=== PATIENT | male | born 1980 | race Two or more races ===

== ENCOUNTER 2019-04-08 12:21 | Inpatient (IN) | payer OTHER ==
[~2019-04-08] VITALS: Ht 154.9 cm; Wt 52.2 kg
[2019-04-08 12:25] VITALS: Ht 154.9 cm; Wt 52.2 kg
--- NOTE | 2019-04-08 12:25 | NUR ---
PT BIBA FOR PALPITATIONS AND HR OF 160, PER REPORT PT HAS HAD APPROX 3 EPISODES OF DIARRHEA IN THE PAST 24 HRS WHILE AT [facility], PT WAS GIVEN 6MG OF IVP ADENOSINE, HR DECREASED TO 47 AND THEN RETURNED TO 157 HR, PT REPORTED TO MEDICS THAT MEDICATION MADE HIM FEEL ILL AND PT REFUSED MORE ADENOSINE. MEDICS ALSO REPORT ATTEMPTING TO VAGAL PT X3 WITH NO SUCCESS. PT REPORTS DRINKING "A LOT OF COKE, JUICE, COFFEE AND LOTS OF SUGAR". PT PLACED ON FULL CM. PT'S ONLY COMPLAINTS AT THIS TIME IS PALPITATIONS. DR RODRIGUEZ COMPLETED MSE.
[2019-04-08 12:56] LABS: RED CELL DISTRIBUTION WIDTH 14.3 % (11.5-14.5)
[2019-04-08 13:17] LABS: PLATELET COUNT 439 x10^3mcL (130-400)
[2019-04-08 13:19] LABS: CALCIUM 9.2 mg/dL (8.5-10.1); CARBON DIOXIDE 24.2 mmol/L (21-32); CHLORIDE SERUM 100 mmol/L (98-107); CREATININE SERUM 1.2 mg/dL (0.7-1.3); GFR1 > 60 mL/min; GLUCOSE SERUM 152 mg/dL (74-106); POTASSIUM SERUM 3.9 mmol/L (3.5-5.1); SODIUM SERUM 138 mmol/L (136-145)
[2019-04-08 13:25] LABS: ALBUMIN 3.8 g/dL (3.4-5.0); ALKALINE PHOSPHATASE 87 U/L (46-116); ALT/SGPT 38 U/L (16-63); AST/SGOT 34 U/L (15-37); BILIRUBIN TOTAL 0.3 mg/dL (0.20-1.00); MAGNESIUM 1.7 mg/dL (1.8-2.4)
[2019-04-08 13:31] LABS: TOTAL PROTEIN, SERUM 8.5 g/dL (6.4-8.2)
[2019-04-08 13:33] LABS: T3 TOTAL 0.92 ng/mL
[2019-04-08 13:34] LABS: BAND NEUTROPHIL 0 % (0-10); BASOPHIL 0 % (0-2); MONOCYTE 4 % (0-7); SEGMENTED NEUTROPHILS 89 % (37-75)
[2019-04-08 13:35] LABS: FREE T4 0.78 ng/dL (0.76-1.46); PLATELET MORPHOLOGY PLATELETS INCREASED; rbc morphology (normal/abnorm) ABNORMAL (NORMAL)
[2019-04-08 13:36] LABS: FREE THYROXINE INDEX 1.4 ug/dL (1.4-4.5); T4(THYROXINE) 3.8 ug/dL (4.7-13.3)
[2019-04-08 14:25] LABS: AMPHETAMINE QUAL UR POSITIVE (See below)
--- NOTE | 2019-04-08 14:42 | NUR ---
PT'S BROTHER AT BEDSIDE, LEFT PERSONAL CELL,
[2019-04-08] MEDS ORDERED: SEROQUEL400 M1 PO (15:18)
[2019-04-08] MEDS ORDERED: PAXIL10 MG PO (15:18)
[2019-04-08] MEDS ORDERED: CELEXA10 MG (15:18)
[2019-04-08] MEDS ORDERED: RISPERDAL1 M1 PO (15:20)
--- NOTE | 2019-04-08 15:39 | NUR ---
REPORT GIVEN TO LONNY GONZALEZ TO ASSUME CARE OF PT.
[2019-04-08 16:11] VITALS: BP 144/110
--- NOTE | 2019-04-08 16:12 | NUR ---
ASSUMED CARE OF PATIENT.
--- NOTE | 2019-04-08 16:35 | NUR ---
PATIENT ALERT AND ORIENTED X2 TO NAME AND YEAR. 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 PRESENTS WITH FLAT AFFECT. STARTED ON NS 75ML/HR.
--- NOTE | 2019-04-08 16:36 | NUR ---
RECEIVED PT FROM ER. PT ADMIT FOR PALPITATION AND METH ABUSE, PT IS A/O X1, VERY CONFUSED. AND DELUSION PT STATE HE IS NOT FROM THIS PLANET, AWAKE FROM , BUT DENY ANY SUICIDAL IDEA AT THIS MOMENT, DENY HEARING ANY VOICE. OR ANY VISUAL HALLUSINATION. FOLLOW COMMAND AND ANSWER MOST QUESTIONS. LUNG SOUND CLEAR BILATERAL, NO COUGH, NO SOB, PT IS ON TELE 8, SVT, HR 150 ABOVE, BUT DENY ANY CHEST PAIN OR PALPITATION AT THIS MOMENT, BOWEL SOUND PRESENT ALL 4 QUADRANTS, NO DISTENTION, NO TENDER. PEDAL PULSE PRESENT BOTH FEET, NO EDEMA, IV AT LEFT AC, NO LEAKING, NO INFILTRATION. ALL ADLS ASSIST, ALL NEED MET, CALL LIGHT IN REACH, WILL CONTINUE TO MONITOR.
--- NOTE | 2019-04-08 17:31 | NUR ---
URINE SAMPLE COLLECTED AND SENT TO LAB
--- NOTE | 2019-04-08 17:32 | NUR ---
[facility]. PATIENT REMAINS ASYMPTOMATIC WITH CONFUSED BEHAVIOR.
[2019-04-08 17:56] LABS: UA SPECIFIC GRAVITY 1.015 (1.005-1.035); microscopic required? YES; urine erythrocyte 2+ (NEGATIVE)
--- NOTE | 2019-04-08 18:46 | NUR ---
REPORTED TO TICKET SORTER DREW OF URINALYSIS RESULTS. TELEPHONE ORDERS TO INITIATE IV ZOSYN 2.25MG Q8H. PATIENT SEEN RESTING IN BED TALKING ON THE PHONE. NO COMPLAINTS OF PAIN OR DISCOMFORT. WILL ENDORSE CARE TO ONCOMING RN.
--- NOTE | 2019-04-08 19:30 | NUR ---
PT IN BED AWAKE ORIENTED TALKING TO SOMEBODY IN THE PHONE NO DELUSIONAL THINKING, ANSWERS QUESTION APPROPRIATELY, DENIES PAIN NO DISTRESS, ST IN THE MONITOR HR >140'S NO CP OR PRESSURE, IVF NS INFUSING @ 75CC/HR IV ACCESS @ LAC PATENT NON INFIL, PT AMBULATING TO THE BATHROOM, SHIFT ASSESSMENT DONE, CALL LIGHT AT REACH CONT TO MONITOR.
--- NOTE | 2019-04-08 20:04 | NUR ---
AWAKE ORIENTED, VERBAL SLOW GARBLED SPEECH COMPREHENSIVE, LABORED BREATHING ON EXERTION NO DISTRESS ON 02 @ 2L/MIN NC, AUDIBLE EXPIRATORY WHEEZES, NO COUGHING, SATURATING 94%, RT PROT FOR TX, GEN WEAKNESS, NEEDS ASSIST FOR BED MOBILITY, LT SIDE LIMITED, IV ACCESS RFA PATENT NON INFIL, DENIES PAIN SHIFT ASSESSMENT DONE, ATTENDED NEEDS, SON AT BEDSIDE FOR VISIT CONT TO MONITOR.
--- NOTE | 2019-04-08 20:53 | NUR ---
RECEIVED A CALL PT NOT ON TELE, CHECKED PT NOT IN THE BED WHEN I LOOK INSIDE THE ROOM PT WAS HIDING BEHIND THE CURTAIN, CALLED SOMEBODY FOR HELP, THE PT CAME OUT FROM THE CURTAIN AND PICKED UP HIS BAG OF BELONGINGS WANT TO GO OUT ON PASS, STATED "I DON'T WANT TO STAY HERE" PT BIT THE IV TUBINGS AND REMOVED THE LINE, ALSO CUT OFF THE PHONE WIRE, HE TOOK THE TELE MONITOR AND PUT IT ON HIS POCKET, PT CONTINUE TO WALKED OUT, ANOTHER STAFF FOLLOWED HIM, DR MOODY MADE AWARE AND TRIED TO TALK TO THE PT BUT PT CONTINUE TO WALK TOWARDS THE ELEVATOR, ABLE TO GET TELE MONITOR FROM HIS POCKET AND REMOVED THE NAME BAND, PT STATED "I WILL GO TO A BETTER HOSPITAL IN [place]" PT THEN TOOK THE ELEVATOR DOWN, BROTHER ENZO STRONGIL INFORMED BY THE CN BY PHONE THAT THE PT LEFT THE HOSPITAL AMA.
== END 2019-04-08 20:52 | disposition left against medical advice (07) | DRG 871 ==
LOC: ED 12:21 → DU 15:01
PROVIDERS: Emergency Medicine; ADMIT Internal Medicine
DX: A41.9 Sepsis, unspecified organism (principal); N17.0 Acute kidney failure with tubular necrosis; N39.0 Urinary tract infection, site not specified; R80.9 Proteinuria, unspecified; R00.0 Tachycardia, unspecified; E83.42 Hypomagnesemia; F15.10 Other stimulant abuse, uncomplicated; F20.9 Schizophrenia, unspecified; F32.9 Major depressive disorder, single episode, unspecified
CPT/HCPCS: 84439; J2060; J2543; J3475; J7030

== ENCOUNTER 2019-04-30 11:52 | Inpatient (IN) | payer OTHER ==
[~2019-04-30] VITALS: Ht 154.9 cm; Wt 51.0 kg
[~2019-04-30 11:52] MED LIST: CELEXA10 MG; PAXIL10 MG PO; RISPERDAL1 M1 PO; SEROQUEL400 M1 PO
--- NOTE | 2019-04-30 12:06 | NUR ---
BROUGHT IN BY [facility], PT PICKED UP BY AMBULANCE @ [facility]. PT NOT ON 5149, GOES TO [facility] FOR DAY PROGRAM RE: PSYCH PROBLEM, HX DEPRESSION AND SCHIZOPHRENIA. PT TRANSFERRED TO [facility] FOR EVAL RE HBP, BP RESIDENTIAL LIFE DIRECTOR 162/117 PER REPORT. PT DENIES HEADACHE, RINGING @ EARS, DENIES N/V. 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 AWAITING FOR MSE.
--- NOTE | 2019-04-30 12:38 | NUR ---
STEPMOTHER AT BEDSIDE. PT TALKATIVE, SKIN MOIST, PALE, NO SIGNS OF RESP DISTRESS, EKG IN PROGRESS. URINAL AT BEDSIDE, AWARE NEED URINE SAMPLE.
[2019-04-30 12:52] LABS: CALCIUM 9.1 mg/dL (8.5-10.1); CARBON DIOXIDE 27.9 mmol/L (21-32); CHLORIDE SERUM 99 mmol/L (98-107); CREATININE SERUM 1.1 mg/dL (0.7-1.3); GFR1 > 60 mL/min; GLUCOSE SERUM 126 mg/dL (74-106); POTASSIUM SERUM 3.4 mmol/L (3.5-5.1); SODIUM SERUM 138 mmol/L (136-145)
[2019-04-30 12:57] LABS: BASOPHIL % 0.3 % (0-2); RED CELL DISTRIBUTION WIDTH 13.8 % (11.5-14.5)
[2019-04-30 12:58] LABS: PLATELET COUNT 419 x10^3mcL (130-400)
[2019-04-30 13:03] LABS: ALBUMIN 3.7 g/dL (3.4-5.0); ALKALINE PHOSPHATASE 82 U/L (46-116); ALT/SGPT 154 U/L (16-63); AST/SGOT 73 U/L (15-37); BILIRUBIN TOTAL 0.2 mg/dL (0.20-1.00); C REACTIVE PROTEIN 2.5 mg/dL (<=0.9); TOTAL PROTEIN, SERUM 8.2 g/dL (6.4-8.2)
[2019-04-30 13:07] LABS: FREE T4 0.7 ng/dL (0.76-1.46); FREE THYROXINE INDEX 1.2 ug/dL (1.4-4.5); T4(THYROXINE) 3.3 ug/dL (4.7-13.3)
--- NOTE | 2019-04-30 13:10 | NUR ---
PT SENT TO CT
--- NOTE | 2019-04-30 13:20 | NUR ---
PATIENT BACK FROM CT
--- NOTE | 2019-04-30 13:29 | NUR ---
PT RESTING AT BEDSIDE INNAD
[2019-04-30 14:00] LABS: T3 TOTAL 0.8 ng/mL
[2019-04-30 14:01] LABS: ERYTHROCYTE SED RATE 34 mm/hr (0-15)
[2019-04-30] MEDS ORDERED: RIS1 PO (14:07)
[2019-04-30] MEDS ORDERED: DEPAKOTE DR (14:07)
[2019-04-30] MEDS ORDERED: BENADRYL ALLERG25 M1 PO (14:07)
[2019-04-30 14:21] LABS: microscopic required? YES; urine erythrocyte 1+ (NEGATIVE)
[2019-04-30 14:28] LABS: AMPHETAMINE QUAL UR POSITIVE (See below)
--- NOTE | 2019-04-30 14:45 | NUR ---
2ND BOLUS INFUSED, BP AT THIS TIME 144/101, HR 138
--- NOTE | 2019-04-30 15:01 | NUR ---
SPOKE TO AYLEEN Richardson Nevro, REPORT GIVEN.
--- NOTE | 2019-04-30 15:30 | NUR ---
RECEIVED PT FROM ED VIA [employer], PT CAME IN FROM [facility] DUE TO HYPERTENSION. AAOX3. DENIES HEADACHE/DIZZINESS. STATED THAT HE HAS POOR VISION. NO SOB NOTED, LUNG SOUNDS CTA. DENIES CHEST PAIN/PRESSURE, SINUS TACHYCARDIA ON THE MONITOR, HR AT 134. DENIES ABDOMINAL DISCOMFORT. VOIDS. IV SITE ON THE RAC GAUGE 20 IS PATENT AND INTACT. SIDE RAILS UPX2. CALL LIGHT ON REACH. PT REFUSES SKIN ASSESSMENT. ENDORSED TO PRIMARY NURSE AYLEEN FOR CONTINUITY OF CARE
[2019-04-30 15:38] VITALS: BP 155/109
[2019-04-30 15:43] VITALS: Ht 154.9 cm; Wt 51.0 kg
--- NOTE | 2019-04-30 16:05 | NUR ---
PT IS ANXIOUS, MEDICATED PER EMAR. WILL CONTINUE TO MONITOR. 1:1 AT BEDSIDE.
--- NOTE | 2019-04-30 18:36 | NUR ---
NO ACUTE CHANGES AT THIS TIME. NO ACUTE RESP DISTRESS OR SOB NOTED. 1:1 AT BEDSIDE. PT IS CURRENTLY CALM AND COOPERATIVE AT THIS TIME. IV TO THE RAC INTACT AND PATENT INFUSING AT 100 ML/HR, NO REDNESS OR SWELLING NOTED. WILL ENDORSE TO INCOMING RN.
[2019-04-30 18:50] VITALS: BP 145/94
--- NOTE | 2019-04-30 18:51 | NUR ---
REC CALL FROM TELE, PT HR IS RANGING FROM 130-140 BPM. PT IS CALM AT THIS TIME. DR FLAHERTY PAGED VS 145/94, RESP 20, 100 RA, HR 131. PT DENIES ANY CP OR PRESSURE.
--- NOTE | 2019-04-30 19:10 | NUR ---
RECEIVED PT FROM PREVIOUS SHIFT NURSE. PT AOX1, CONFUSED, SPEECH GARBLED. TELE #8, ST, HR 148. DENIES CP/PRESSURE. DENIES SOB/DIFFICULTY BREATHING, ON RA. IV TO RAC, INTACT AND PATENT. BED IN LOWEST POSITION. CALL LIGHT WITHIN REACH. WILL CONTINUE TO MONITOR.
--- NOTE | 2019-05-01 01:11 | NUR ---
PT CONTINUES TO BE TACHYCARDIC WITH HR SUSTAINING IN THE 130S-140S. DR. HOUSE NOTIFIED, NO FURTHER ORDERS AT THIS TIME. PT ASYMPTOMATIC AND RESTING IN BED. RR EVEN AND UNLABORED. IN NO ACUTE DISTRESS. WILL CONTINUE TO MONITOR.
[2019-05-01 04:42] VITALS: BP 129/86
--- NOTE | 2019-05-01 06:20 | NUR ---
PT C/O FEELING ANXIOUS AND BECAME FIDGETY. MEDICATED PER EMAR.
[2019-05-01 06:47] LABS: BASOPHIL % 0.3 % (0-2)
[2019-05-01 06:53] LABS: ALBUMIN 3.6 g/dL (3.4-5.0); ALKALINE PHOSPHATASE 73 U/L (46-116); ALT/SGPT 145 U/L (16-63); AST/SGOT 58 U/L (15-37); BILIRUBIN TOTAL 0.3 mg/dL (0.20-1.00); CALCIUM 9.2 mg/dL (8.5-10.1); CARBON DIOXIDE 29.5 mmol/L (21-32); CHLORIDE SERUM 105 mmol/L (98-107); CREATININE SERUM 0.8 mg/dL (0.7-1.3); GFR1 > 60 mL/min; GLUCOSE SERUM 107 mg/dL (74-106); MAGNESIUM 2.1 mg/dL (1.8-2.4); POTASSIUM SERUM 3.6 mmol/L (3.5-5.1); SODIUM SERUM 142 mmol/L (136-145)
[2019-05-01 06:58] LABS: PLATELET COUNT 459 x10^3mcL (130-400)
--- NOTE | 2019-05-01 07:15 | NUR ---
RECIEVED PT RESING IN BED WITH SITTER AT BEDSIDE. PT APPEARS CONFUSED AND ANXIOUS, A/O X1. ATIVAN GIVEN BY NIGHT NURSE ALREADY. TELE MONITOR #8 CONNECTED TO PT. DENIES ANY CP OR PRESSURE.LUNGS CTA NO SOB NOTED. NO C/O PAIN AT THIS TIME. SAFETY PRECAUTIONS IN PLACE. CALL LIGHT WITHIN REACH. WILL MONITOR.
[2019-05-01 07:59] VITALS: BP 128/76
--- NOTE | 2019-05-01 10:15 | NUR ---
PT REPORT ANXIETY, MEDICATED WITH ATIVAN PER EMAR. SITTER AT BEDSIDE AND WILL REASSESS.
[2019-05-01 12:54] VITALS: BP 148/101
--- NOTE | 2019-05-01 12:59 | NUR ---
PT BP 148/101, HR 117. NOTIFIED DR FLAHERTY VIA [facility]. SECOND NOTIFICATION, WILL F/U. PT SHOWS NO S/S OF ANY DISTRESS AT THIS TIME, WILL CONTINUE TO MONITOR.
--- NOTE | 2019-05-01 16:00 | NUR ---
PT STABLE AT THIS TIME. VS WNL. NO C/O PAIN, DISTRES, OR SOB. SITTER AT BEDSIDE. SAFETY PRECAUTIONS IN PLACE. CALL LIGHT WITHIN REACH. WILL MONITOR
[2019-05-01 18:21] VITALS: BP 134/87
--- NOTE | 2019-05-01 19:34 | NUR ---
Awake and verbally responsive. No respiratory distress noted noted on room air. Denies pain. Denies n/v. Calm at this time. HR-120's. Denies chest pain or pressure. Will cont.to monitor. Call light within reach.
--- NOTE | 2019-05-01 20:30 | NUR ---
ALL CARES TOLERATED WELL. VS WNL. NO PAIN, DISTRESS, OR SOB NOTED. SITTER AT BEDSIDE. IV INTACT AND PATENT WITH NO REDNESS OR INFLAMMATION NOTED. SAFETY PRECAUTIONS IN PLACE. CALL LIGHT WITHIN REACH. ENDORESED CARE TO NIGHT NURSE.
[2019-05-01 20:55] VITALS: BP 134/75
--- NOTE | 2019-05-02 03:53 | NUR ---
Afebrile. No significant change in condition noted. Asleep at this time. No SOB noted. No cues of pain.
[2019-05-02 05:56] VITALS: BP 117/73
--- NOTE | 2019-05-02 07:36 | NUR ---
RECIEVED PT RESING COMFORTABLY IN BED WITH SITTER AT BEDSIDE. TELE MONITOR #8 CONNECTED TO PT. DENIES ANY CP OR PRESSURE. LUNGS CTA NO SOB NOTED. IV AT LFA #22 INTACT AND PATENT WITH NO REDNESS OR INFLAMMATION. NS RUNNING AT 130ML/HR. NO C/O PAIN AT THIS TIME. SAFETY PRECAUTIONS IN PLACE. CALL LIGHT WITHIN REACH. WILL MONITOR.
[2019-05-02 07:44] LABS: ALKALINE PHOSPHATASE 62 U/L (46-116); ALT/SGPT 86 U/L (16-63); AST/SGOT 23 U/L (15-37); BILIRUBIN TOTAL 0.25 mg/dL (0.20-1.00); CALCIUM 8.6 mg/dL (8.5-10.1); CARBON DIOXIDE 23.7 mmol/L (21-32); CHLORIDE SERUM 108 mmol/L (98-107); CREATININE SERUM 0.8 mg/dL (0.7-1.3); GFR1 > 60 mL/min; GLUCOSE SERUM 96 mg/dL (74-106); MAGNESIUM 1.9 mg/dL (1.8-2.4); PHOSPHOROUS 4.8 mg/dL (2.5-4.9); POTASSIUM SERUM 4.3 mmol/L (3.5-5.1); SODIUM SERUM 142 mmol/L (136-145); TOTAL PROTEIN, SERUM 6.5 g/dL (6.4-8.2)
[2019-05-02 09:05] LABS: BASOPHIL % 0.4 % (0-2); PLATELET COUNT 368 x10^3mcL (130-400); RED CELL DISTRIBUTION WIDTH 13.8 % (11.5-14.5)
--- NOTE | 2019-05-02 10:43 | NUR ---
PT STABLE AT THIS TIME. NO PAIN, DISTRESS, OR SOB REPORTED. SITTER AT BEDSIDE. SAFETY PRECAUTIONS IN PLACE, CALL LIGHT WITHIN REACH. WILL MONITOR.
[2019-05-02 13:18] VITALS: BP 98/54
--- NOTE | 2019-05-02 14:00 | NUR ---
PT STABLE AT THIS TIME. RESTING IN BED WITH SITTER AT BEDSIDE. NO C/O PAIN, DISTRESS, OR SOB. SAFETY PRECAUTIONS IN PLACE. CALL LIGHT WITHIN REACH. WILL MONITOR.
--- NOTE | 2019-05-02 16:30 | NUR ---
PT STABLE AND RESTING COMFORTABLY IN BED. VS WNL AND NO DISTRESS NOTED. SITTER AT BEDSIDE. SAFETY PRECAUTIONS IN PLACE, CALL LIGHT WITHIN REACH, WILL MONITOR.
--- NOTE | 2019-05-02 19:18 | NUR ---
PT STABLE AT THIS TIME RESING COMFORTABLY IN BED. DENIES ANY PAIN, DISTRESS, OR SOB. DENIES CP OR PRESSURE. IV INTACT AND PATENT WITH NO REDNESS OR INFLAMMATION NOTED. NS RUNNING AT 130ML/HR. SAFETY PRECAUTIONS IN PLAC. SITTER AT BEDSIDE, ENDORSED CARE TO NIGHT NURSE.
--- NOTE | 2019-05-02 19:20 | NUR ---
RECEIVED PT RESTING IN BED, NO ACUTE DISTRESS NOTED. PT AOX4, DENIES SAENZ/DIZZINESS. TELE #8, ST 117, DENIES CP. PT UDS (+) METH, WILL CONTINUE TO MONITOR HR. RESP EVEN AND UNLABORED ON RA, DENIES SOB. ABD SOFT, ROUND, DENEIS ABD PAIN. PT VOIDS FREELY W/O DYSURIA, UA (+) ECOLI, PT ON ROCEPHIN. PT APPEARS SLEEPY BUT ABLE TO MAINTAIN CONVERSATION. SKIN INTACT. IV SITE TO THE LFA, NS @ 130ML.HR. NO REDNESS, SWELLING OR PAIN NOTED. ALL COMFORT AND SAFETY MEASURES PROVIDED FOR, CALL LIGHT WITHIN REACH, BED IN LOWEST POSITION, WILL CONTINUE TO MONITOR.
[2019-05-02 19:35] VITALS: BP 102/74
[2019-05-03 06:10] VITALS: BP 109/72
--- NOTE | 2019-05-03 06:40 | NUR ---
PT RESTED IN INTERVALS DURING SHIFT, NO ACUTE CHANGES OCCURRING OVERNIGHT. PT ABLE TO MAKE NEEDS KNOWN, PT REMAINS SAFE DURING SHIFT, ALL COMFORT AND SAFETY MEASURES PROVIDED FOR, CALL LIGHT WITHIN REACH, BED IN LOWEST POSITION, WILL CONTINUE TO MONITOR.
[2019-05-03 06:49] LABS: ALKALINE PHOSPHATASE 49 U/L (46-116); ALT/SGPT 70 U/L (16-63); AST/SGOT 14 U/L (15-37); BILIRUBIN TOTAL 0.2 mg/dL (0.20-1.00); CALCIUM 8.5 mg/dL (8.5-10.1); CARBON DIOXIDE 28.1 mmol/L (21-32); CHLORIDE SERUM 112 mmol/L (98-107); CREATININE SERUM 0.8 mg/dL (0.7-1.3); GFR1 > 60 mL/min; GLUCOSE SERUM 87 mg/dL (74-106); MAGNESIUM 1.8 mg/dL (1.8-2.4); PHOSPHOROUS 3.7 mg/dL (2.5-4.9); POTASSIUM SERUM 4.3 mmol/L (3.5-5.1); SODIUM SERUM 146 mmol/L (136-145)
[2019-05-03 06:50] LABS: ALBUMIN 2.7 g/dL (3.4-5.0); BASOPHIL % 0.3 % (0-2); PLATELET COUNT 366 x10^3mcL (130-400); RED CELL DISTRIBUTION WIDTH 13.8 % (11.5-14.5)
--- NOTE | 2019-05-03 07:00 | NUR ---
RECEIVED BEDSIDE REPORT FROM [facility] HAND NURSE AT THIS TIME. PATIENT RESTING COMFORTABLY IN BED. NO APPARENT DISTRESS OR DISCOMFORT NOTED. BREATHING EVEN AND UNLABORED. NO RESPIRATORY DISTRESS NOTED. IV PATENT AND INTACT. ALL QUESTIONS AND CONCERNS ADDRESSED. ALL NEEDS ATTENDED TO. SITTER AT BEDSIDE TO PROMOTE PATIENT SAFETY. WILL CONTINUE TO MONITOR
[2019-05-03 08:32] VITALS: BP 115/77
--- NOTE | 2019-05-03 09:18 | NUR ---
MORNING MEDICATION ADMINISTERED. PATIENT TOLERATED WELL. NO ADVERSE EFFECTS NOTED. ALL NEEDS ATTENDED TO. WILL CONTINUE TO MONITOR
--- NOTE | 2019-05-03 10:34 | NUR ---
SPOKE TO DR FLAHERTY AND INFORMED HIM DR MARS CLEARED PATIENT FOR DISCHARGE.WILL CONTINUE TO MONITOR
[2019-05-03 12:05] VITALS: BP 117/78
[2019-05-03] MEDS ORDERED: DEPAKOTE ER500 MG PO (14:08)
[2019-05-03] MEDS ORDERED: BEN50 PO (14:09)
[2019-05-03] MEDS ORDERED: RISPERIDONE4 M2 PO (14:09)
[2019-05-03 14:56] VITALS: BP 117/78
--- NOTE | 2019-05-03 15:29 | NUR ---
SPOKE TO MARIANELA PATIENT'S STEPMOM AT THIS TIME. REPORTED PATIENT IS BEING DISCHARGED. PER MARIANELA, SHE WILL BE ABLE TO PICK HIM UP IN 1 HOUR. WILL CONTINUE TO MONITOR
--- NOTE | 2019-05-03 18:07 | NUR ---
PATIENT STABLE TO BE DISCHARGED TO HOME. DISCHARGE INSTRUCTIONS GIVEN WELL EDUCATION. INSTRUCTED PATIENT ABOUT FOLLOW UP APPOINTMENTS AND HE NEEDS TO SCHEDULE. PATIENT VERBALIZES UNDERSTANDING. IV REMOVED WITH CATH INTACT. ID BANDS REMOVED. TELE MONITOR REMOVED AND RETURNED TO CRIMINAL ATTORNEY. ALL BELONGINGS WITH PATIENT. ALL QUESTIONS AND CONCERNS ADDRESSED. ALL NEEDS ATTENDED TO. PATIENT ESCORTED DOWN TO THE LOBBY AT THIS TIME
== END 2019-05-03 18:00 | disposition home or self-care (01) | DRG 871 ==
LOC: ED 11:52 → DU 14:00
PROVIDERS: Specialist; ADMIT Family Medicine
DX: A41.9 Sepsis, unspecified organism (principal); G92 Toxic encephalopathy; N17.0 Acute kidney failure with tubular necrosis; N39.0 Urinary tract infection, site not specified; Z68.1 Body mass index [BMI] 19.9 or less, adult; F15.129 Other stimulant abuse with intoxication, unspecified; F25.0 Schizoaffective disorder, bipolar type; I16.0 Hypertensive urgency; G40.909 Epilepsy, unspecified, not intractable, without status epilepticus; R00.0 Tachycardia, unspecified; R80.9 Proteinuria, unspecified; R74.0 Nonspecific elevation of levels of transaminase and lactic acid dehydrogenase [LDH]
CPT/HCPCS: 84439; G0378; G0480; J0696; J2060; J3490; J7030; Q0092; Q0163